=== PATIENT | male | born 1960 | race African-American/Black ===

== ENCOUNTER 2022-11-23 03:37 | Emergency (ER) | payer BC ==
[~2022-11-23] VITALS: Ht 167.6 cm; Wt 98.0 kg
[2022-11-23 03:49] VITALS: BP 159/96
[2022-11-23] MEDS ORDERED: IBUPROFEN 600MG TABLET PO ONE (04:45)
[2022-11-23] MEDS ORDERED: IBUP-1523 MT (04:48)
== END 2022-11-23 04:57 | disposition home or self-care (01) ==
LOC: ER 03:37
DX: H92.03 Otalgia, bilateral (principal); E11.9 Type 2 diabetes mellitus without complications; I10 Essential (primary) hypertension
CPT/HCPCS: 99282

== ENCOUNTER 2024-04-14 06:44 | Emergency (ER) | payer BC ==
[~2024-04-14] VITALS: Ht 177.8 cm; Wt 96.0 kg
[~2024-04-14 06:44] MED LIST: IBUP-1523 MT
[2024-04-14 06:45] VITALS: O2SAT 97
[2024-04-14 07:40] LABS: BASOPHILS % 0.4 % (0.0-2.0); EOSINOPHILS % 1.9 % (0.0-5.0); HEMATOCRIT. 44.1 % (42.0-52.0); HEMOGLOBIN. 14.8 g/dL (14.0-18.0); LYMPHOCYTES % 32.6 % (20.0-50.0); MEAN CORPUSCULAR HEMOGLOBIN 28.9 pg (28.0-32.0); MEAN CORPUSCULAR HGB CONC 33.5 g/dL (31.0-37.0); MEAN CORPUSCULAR VOLUME 86.1 fL (80.0-94.0); MEAN PLATELET VOLUME 8.5 fl (7.4-10.4); MONOCYTES % 7.7 % (2.0-8.0); NEUTROPHILS % 57.4 % (40.0-76.0); PLATELET 215 x1000/uL (130-400); RED BLOOD CELL COUNT 5.12 mill/uL (4.7-6.1); RED CELL DISTRIBUTION WIDTH 13.9 % (11.6-14.6); WHITE BLOOD COUNT 5.3 x1000/uL (4.5-11.0)
[2024-04-14 07:45] LABS: CHLORIDE 108 mEq/L (98-107); SODIUM 139 mEq/L (136-145)
[2024-04-14 07:46] LABS: CALCIUM 9.4 mg/dL (8.7-10.4); CARBON DIOXIDE 26 mEq/L (21-32)
[2024-04-14 07:51] LABS: CREATININE 1.1 mg/dL (0.6-1.3); GLUCOSE 221 mg/dL (70-105); UREA NITROGEN BLOOD 14 mg/dL (9-23)
[2024-04-14 07:52] LABS: TROPONIN I HIGH SENSITIVITY 31 ng/L (3.0-53)
[2024-04-14 09:45] LABS: TROPONIN I HIGH SENSITIVITY 29 ng/L (3.0-53)
[2024-04-14] MEDS ORDERED: DOCUSATE SODIUM 100MG CAPSULE PO PRN (10:45)
[2024-04-14] MEDS ORDERED: DEXTROSE 50% WATER 50ML SYRINGE IV PRN (10:45)
[2024-04-14] MEDS ORDERED: ACETAMINOPHEN 325MG TABLET PO PRN ×2 (10:45)
[2024-04-14] MEDS ORDERED: GUAIFENESIN 200MG/10ML SUGAR FREE UDC PO PRN (10:45)
[2024-04-14] MEDS ORDERED: NITROGLYCERIN 0.4MG TABLET SL SL PRN (10:45)
[2024-04-14] MEDS ORDERED: CLONIDINE 0.1MG TABLET PO PRN (10:45)
[2024-04-14] MEDS ORDERED: ONDANSETRON HCL 4MG/2ML INJ IV PRN (10:45)
[2024-04-14] MEDS ORDERED: KETOROLAC 15MG/ML VIAL IV PRN (10:45)
[2024-04-14] MEDS ORDERED: MAGNESIUM/ALUMINUM HYDROXIDE/SIMETHICONE 30ML UDC PO PRN (10:45)
[2024-04-14] MEDS ORDERED: IPRATROPIUM/ALBUTEROL 0.5-3(2.5)MG/3ML NEB NEB PRN (10:45)
[2024-04-14 10:50] VITALS: BP 121/71; PULSE 62; RESP 14; TEMP 36.72516; O2SAT 98
[2024-04-14] MEDS ORDERED: ENOXAPARIN 40MG/0.4ML SYR SUBCUT SCH (11:00)
[2024-04-14 11:09] LABS: IRON 97 ug/dL (65-175); TRIGLYCERIDE 82 mg/dL (0-150)
[2024-04-14 11:10] LABS: LDL CHOLESTEROL 109 mg/dL (5-100)
[2024-04-14 11:11] LABS: CHOLESTEROL 157 mg/dL (<200); HDL CHOLESTEROL 42 mg/dL (>55); TOTAL IRON BINDING CAPACITY 241 ug/dl (250-425)
[2024-04-14 11:14] LABS: T4 FREE 1.21 ng/dL (0.89-1.76); THYROID STIMULATING HORMONE 1.05 uIU/mL (0.55-4.78)
[2024-04-14 11:15] LABS: FOLIC ACID (FOLATE) SERUM 19.07 ng/mL (>5.38); VITAMIN B12 SERUM 449 pg/mL (211-911)
[2024-04-14] MEDS ORDERED: BLOOD SUGAR DIAGNOSTIC STRIP TEST SCH (13:00)
[2024-04-14] MEDS ORDERED: INSULIN LISPRO 100 UNITS/ML SUBCUT SCH (13:20)
[2024-04-14] MEDS ORDERED: NITROGLYCERIN OINT 1GM/INCH UDPKT TD SCH (14:00)
[2024-04-14] MEDS ORDERED: ZOLPIDEM TARTRATE 5MG TABLET PO PRN (21:00)
[2024-04-14] MEDS ORDERED: FAMOTIDINE 20MG TABLET PO SCH (21:00)
[2024-04-14] MEDS ORDERED: INSULIN GLARGINE 100 UNITS/ML SUBCUT SCH (22:00)
[2024-04-15] MEDS ORDERED: ASPIRIN 81MG EC TABLET PO SCH (09:00)
== END 2024-04-14 10:51 | disposition left against medical advice (07) ==
LOC: ER 06:46
DX: R07.9 Chest pain, unspecified (principal); E11.9 Type 2 diabetes mellitus without complications; Z98.890 Other specified postprocedural states
CPT/HCPCS: 36415; 71045; 80048; 80061; 82607; 82746; 83036; 83540; 83550; 84439; 84443; 84484; 85025; 93005; 99285

== ENCOUNTER 2024-09-28 02:51 | Emergency (ER) | payer BC ==
[~2024-09-28] VITALS: Ht 175.3 cm; Wt 83.0 kg
[2024-09-28 02:54] VITALS: TEMP 36.6; O2SAT 99
[2024-09-28 03:43] LABS: BASOPHILS % 0.6 % (0.0-2.0); EOSINOPHILS % 0.6 % (0.0-5.0); HEMATOCRIT. 47.4 % (42.0-52.0); HEMOGLOBIN. 15.7 g/dL (14.0-18.0); LYMPHOCYTES % 20.4 % (20.0-50.0); MEAN CORPUSCULAR HGB CONC 33.1 g/dL (31.0-37.0); MEAN CORPUSCULAR VOLUME 84.5 fL (80.0-94.0); MEAN PLATELET VOLUME 8.3 fl (7.4-10.4); MONOCYTES % 8.4 % (2.0-8.0); PLATELET 237 x1000/uL (130-400); RED BLOOD CELL COUNT 5.62 mill/uL (4.7-6.1); RED CELL DISTRIBUTION WIDTH 13.8 % (11.6-14.6); WHITE BLOOD COUNT 5.1 x1000/uL (4.5-11.0)
[2024-09-28 03:44] LABS: CHLORIDE 103 mEq/L (98-107); POTASSIUM 3.9 mEq/L (3.5-5.1); SODIUM 137 mEq/L (136-145)
[2024-09-28 03:45] LABS: CALCIUM 9.4 mg/dL (8.7-10.4); CARBON DIOXIDE 26 mEq/L (21-32)
[2024-09-28 03:50] LABS: CREATININE 1.1 mg/dL (0.6-1.3); GLUCOSE 234 mg/dL (70-105); UREA NITROGEN BLOOD 19 mg/dL (9-23)
[2024-09-28 04:50] VITALS: BP 149/95; PULSE 76; RESP 12; O2SAT 99
== END 2024-09-28 04:55 | disposition home or self-care (01) ==
LOC: ER 03:02
DX: E10.649 Type 1 diabetes mellitus with hypoglycemia without coma (principal); E78.00 Pure hypercholesterolemia, unspecified; I10 Essential (primary) hypertension; Z79.4 Long term (current) use of insulin; Z98.890 Other specified postprocedural states
CPT/HCPCS: 80048; 82962; 85025; 36415; 99284; Z7610 ×2; A4606